=== PATIENT | male | born 1970 | race Caucasian/White ===

== ENCOUNTER 2020-06-29 00:49 | Emergency (ER) | payer OTHER, MEDICAID, SELFPAY ==
[2020-06-29 01:02] VITALS: BP 180/90; PULSE 81; RESP 16; TEMP 35.5; O2SAT 98; BMI 37.1
[2020-06-29 01:19] LABS: Glucose, Whole Blood 200 mg/dL (60-115)
[2020-06-29 03:28] LABS: MANUAL DIFF FLAG NO
[2020-06-29 03:29] LABS: Basophils Absolute Auto 0.1 X10*3/uL (0.0-0.2); Basophils Percent Auto 0.4 % (0-2); Eosinophils Absolute Auto 0.1 X10*3/uL (0.0-0.4); Eosinophils Percent Auto 1.1 % (0-4); Hematocrit 38.5 % (42-52); Imm Gran Abs Auto 0.03 X10*3/uL (0.00-0.03); Imm Gran Pct Auto 0.3 % (0.0-0.4); Lymphocytes Absolute Auto 2.2 X10*3/uL (1.2-4.9); Lymphocytes Percent Auto 18.3 % (20-40); Mean Corpuscular HGB Conc 33.8 g/dl (31.0-36.0); Mean Corpuscular Volume 97.7 fL (80-98); Monocytes Absolute Auto 0.6 X10*3/uL (0.1-1.2); Monocytes Percent Auto 5.1 % (2-11); Neutrophils Absolute Auto 8.9 X10*3/uL (2.0-8.3); Neutrophils Percent Auto 74.8 % (45-73); Platelet Count 247 X10*3/uL (160-400); Red Blood Count 3.94 X10*6/uL (4.60-5.80); Red Cell Distribution Width 12.6 % (11.0-16.0); White Blood Count 11.9 X10*3/uL (4.8-10.8)
[2020-06-29 04:00] VITALS: BP 168/84; PULSE 75; RESP 16; TEMP 36.1; O2SAT 99
[2020-06-29 04:00] LABS: Alanine Aminotransferase 41 U/L (0-40); Albumin Level 4.6 g/dL (3.5-5.0); Alkaline Phosphatase 57 U/L (39-117); Anion Gap 15 (12-20); Aspartate Amino Transferase 21 U/L (5-37); Bilirubin Total 0.4 mg/dL (0.0-1.0); Blood Urea Nitrogen 25 mg/dL (9-16); Carbon Dioxide 24 mmol/L (22-29); Chloride 103 mmol/L (96-108); Creatinine Clr Calc Pharmacy 90.7; Estimated Glomerular Filt Rate > 60; Glucose Random 227 mg/dL (60-115); Potassium 4.7 mmol/l (3.3-5.1); Sodium 137 mmol/L (135-145); Total Protein 7.1 g/dL (6.5-8.0)
--- NOTE | 2020-06-29 04:39 | ED_ITS ---
HPI - Dizziness General Chief Complaint: Dizziness Stated Complaint: Dizziness Time Seen by Provider: 06/29/20 04:19 Source: patient Mode of arrival: ambulatory Limitations: no limitations History of Present Illness HPI Narrative: Patient comes in complaining of severe dizziness. Patient states at 21:00 last night he has sudden onset of ringing in his right ear, then suddenly he became dizzy. Patient states the whole room is spinning. Patient is nauseous, no vomiting. Patient states every time he moves his head, the spinning gets worse. MD elicited complaint: dizziness Timing: sudden onset Severity: moderate Description: room spinning History of similar symptoms: No Exacerbating factors: movement/ambulation Relieving factors: remaining still Associated symptoms: nausea Related Data Previous Rx's Medication Instructions Recorded meclizine 25 mg PO TID PRN #20 tab 06/29/20 Allergies Allergy/AdvReac Type Severity Reaction Status Date / Time bee pollen [BEE STINGS] Allergy Severe ANAPHYLAXIS Unverified 06/02/20 15:31 tree nut [TREE NUT] Allergy Severe ANAPHYLAXIS Unverified 06/02/20 15:31 SEASONAL ALLERGIES Allergy Mild RUNNY NOSE Uncoded 06/02/20 15:31 Review of Systems Review of Systems: Constitutional : No Weight loss, No Fever, No Chills, No Night Sweats, No Fatigue, No Malaise ENT/Mouth : No Hearing loss, No Ear Pain, No Nasal Congestion, No Sinus Pain, No Hoarseness, No sore throat, No Rhinorrhea, No Swallowing Difficulty Eyes: No Eye Pain, No Swelling, No Redness, No Foreign Body, No Discharge, No Vision Changes Cardiovascular : No Chest Pain, No SOB, No Dyspnea on Exertion, No Orthopnea, No Edema, No Palpitations Respiratory : No Cough, No Sputum, No Wheezing, No Smoke Exposure, No Dyspnea Gastrointestinal : No Nausea, No Vomiting, No Diarrhea, No Constipation, No abdominal Pain, No Hematochezia, No Melena Genitourinary : no irregular bleeding, No Dysuria, No Urinary Frequency, No Hematuria, No Urinary Incontinence, No Urgency, No Flank Pain, No Urinary Flow Changes, No Hesitancy Musculoskeletal : No joint pain, No Myalgias, No Joint Swelling Skin : No Skin Lesions, No rash Neuro : No Weakness, No Numbness, No Paresthesias, No Loss of Consciousness, Dizziness with head movement, described as the room spinning. No Headache Psych : No Anxiety/Panic, No Depression, No SI/HI/AH/VH, No Social Issues, Heme/Lymph: No Bruising, No Bleeding,No Lymphadenopathy Endocrine : No Polyuria, No Polydipsia, No Temperature Intolerance [facility] Social History Social History Alcohol intake: never Smoking Status: Never smoker Smoked in Last 30 Days: No Use of substances other than those prescribed or required for medical reasons: No Advance Directives: No Advance Directives Information Provided: No Physical Exam Vital Signs: Vital Signs: Vital Signs Temp Pulse Resp BP Pulse Ox 06/29/20 06:00 97.8 F 69 16 102/55 L 98 06/29/20 04:00 97.0 F 75 16 168/84 H 99 06/29/20 01:02 96 F L 81 16 180/90 H 98 Body Mass Index 37.1 Appearance: Alert. Oriented X3. No acute distress. Eyes: Pupils equal, round and reactive to light. Horizontal nystagmus with head movement ENT: Pharynx normal. Neck: Normal inspection. Neck supple. No lymph nodes noted. No crepitus CVS: Normal heart rate and rhythm. Pulses normal. Normal S1 and S2 Respiratory: No respiratory distress. Breath sounds normal. No Wheezing. No rales Abdomen: Soft and nontender. No rigidity. No distention. good BS x4 Skin: Skin warm and dry. Normal skin color. Normal skin turgor. Extremities: No lower extremity edema. No lower extremity edema. No Lacerations. No Rash Neuro: Oriented X 3. No motor deficit. No sensory deficit. Moving all exterm ities. No slurred speech, NIH score of 0. Course Reevaluation(s) Reevaluation #1: patient was given 1 dose of meclizine, Benadryl, Valium, his symptoms improved but patient still Has a sensation the room is spinning when he tries to get up or moves his head. MDM - Dizziness Lab Data Result diagrams: 06/29/20 03:23 06/29/20 03:23 Labs: Lab Results 06/29/20 06/29/20 06/29/20 Range/Units 01:07 03:23 03:23 WBC 11.9 H (4.8-10.8) X10*3/uL RBC 3.94 L (4.60-5.80) X10*6/uL Hgb 13.0 L (14.0-18.0) g/dl Hct 38.5 L (42-52) % MCV 97.7 (80-98) fL MCH 33.0 (27.0-33.0) pg MCHC 33.8 (31.0-36.0) g/dl RDW 12.6 (11.0-16.0) % Plt Count 247 (160-400) X10*3/uL MPV 10.0 (9.4-12.4) fL Immature Gran % (Auto) 0.3 (0.0-0.4) % Neut % (Auto) 74.8 H (45-73) % Lymph % (Auto) 18.3 L (20-40) % Hitchcock % (Auto) 5.1 (2-11) % Eos % (Auto) 1.1 (0-4) % Baso % (Auto) 0.4 (0-2) % Lymph # (Auto) 2.2 (1.2-4.9) X10*3/uL Hitchcock # (Auto) 0.6 (0.1-1.2) X10*3/uL Eos # (Auto) 0.1 (0.0-0.4) X10*3/uL Baso # (Auto) 0.1 (0.0-0.2) X10*3/uL Abs Immat Gran (auto) 0.03 (0.00-0.03) X10*3/uL Absolute Neuts (auto) 8.9 H (2.0-8.3) X10*3/uL Absolute Nucleated RBC 0.000 (0.0-0.012) X10*3/uL Nucleated RBC % (auto) 0.0 (0.0-0.2) /100WBC Sodium 137 (135-145) mmol/L Potassium 4.7 (3.3-5.1) mmol/l Chloride 103 (96-108) mmol/L Carbon Dioxide 24 (22-29) mmol/L Anion Gap 15 (12-20) BUN 25 H (9-16) mg/dL Creatinine 1.09 (0.5-1.4) mg/dL Estim Creat Clear Calc 90.7 Estimated GFR > 60 POC Glucose 200 H (60-115) mg/dL Random Glucose 227 H (60-115) mg/dL Calcium 9.4 (8.4-10.2) mg/dL Total Bilirubin 0.4 (0.0-1.0) mg/dL AST 21 (5-37) U/L ALT 41 H (0-40) U/L Alkaline Phosphatase 57 (39-117) U/L Total Protein 7.1 (6.5-8.0) g/dL Albumin 4.6 (3.5-5.0) g/dL Discharge Plan Discharge Clinical Impression: Benign paroxysmal positional vertigo Qualifiers: Laterality: unspecified laterality Qualified Code(s): H81.10 - Benign paroxysmal vertigo, unspecified ear Patient Disposition: Home, Self-Care Instructions: Benign Paroxysmal Positional Vertigo (ED) Additional Instructions: please follow-up with your primary care physician, and please make an appointment to be seen at the outpatient [facility]. Please follow-up with your primary care physician tomorrow. If you have any worsening or new symptoms, please return to the emergency room or call 911 Prescriptions: New meclizine 25 mg tablet,chewable 25 mg PO TID PRN (Reason: dizziness) Qty: 20 RF: 0
[2020-06-29 05:03] LABS: Calcium 9.4 mg/dL (8.4-10.2)
[2020-06-29] MEDS: Meclizine HCl 25 MG TABLET 50 MG PO (05:10)
[2020-06-29] MEDS: diazePAM 5 MG TABLET PO (05:10)
[2020-06-29 06:00] VITALS: BP 102/55; PULSE 69; RESP 16; TEMP 36.6; O2SAT 98
== END 2020-06-29 09:08 | disposition home or self-care (01) ==
PROVIDERS: Emergency Provider Emergency Medicine; PCP Internal Medicine
DX: H81.10 Benign paroxysmal vertigo, unspecified ear (principal); Z79.899 Other long term (current) drug therapy
CPT/HCPCS: 36415; 80053; 82947; 85025; 96372; 96374; 99284; J1200

== ENCOUNTER 2020-08-14 23:32 | Emergency (ER) | payer OTHER, MEDICAID, SELFPAY ==
[2020-08-14 23:53] VITALS: BP 129/77; PULSE 110; RESP 17; TEMP 37.6; O2SAT 97; BMI 36.3
--- NOTE | 2020-08-14 23:59 | ED_ITS ---
HPI - Skin/Abscess/Foreign Bdy General Chief complaint: Skin/Abscess/Foreign Body Stated complaint: ABSCESS Time Seen by Provider: 08/14/20 23:59 Source: patient Mode of arrival: ambulatory Limitations: no limitations History of Present Illness HPI narrative: 50-year-old male with history of abscesses presents with skin infection and suspected abscess To the pubic mons just above the penis. He denies chest pain and pressure, palpitations, shortness breath, abdominal pain, abdominal distention, dysuria, hematuria, fevers and chills. Related Data Previous Rx's Medication Instructions Recorded meclizine 25 mg PO TID PRN #14 tab 06/29/20 meclizine 25 mg PO TID PRN #20 tab 06/29/20 amoxicillin-pot clavulanate 1 tab PO Q12H 10 Days #20 tab 08/15/20 [Augmentin] doxycycline monohydrate 100 mg PO BID 14 Days #28 cap 08/15/20 oxycodone-acetaminophen [Percocet] 1 tab PO Q6H PRN #7 tab 08/15/20 Allergies Allergy/AdvReac Type Severity Reaction Status Date / Time bee pollen [BEE STINGS] Allergy Severe ANAPHYLAXIS Verified 08/15/20 00:42 tree nut [TREE NUT] Allergy Severe ANAPHYLAXIS Verified 08/15/20 00:42 SEASONAL ALLERGIES Allergy Mild RUNNY NOSE Uncoded 06/02/20 15:31 Review of Systems Review of Systems: Constitutional: No Fever, No Chills ENT/Mouth: No sore throat, No Rhinorrhea Eyes: No Eye Pain, No Swelling, No Redness Cardiovascular: No Chest Pain, No SOB Respiratory: No Cough, No Sputum Gastrointestinal: No Nausea, No Vomiting, No Diarrhea, No abdominal Pain Genitourinary: No Dysuria, No Hematuria Musculoskeletal: No joint pain, No Myalgias, No Joint Swelling Skin: No Skin Lesions, positive Erythema and abscess to the pubic mons. Neuro: No Weakness, No Numbness, No Loss of Consciousness, No Dizziness, No Headache Psych: No Anxiety, No Depression, No SI/HI/AH/VH Heme/Lymph: No Bruising, No Bleeding,No Lymphadenopathy Endocrine: No Polyuria, No Polydipsia Yes all other systems are reviewed and are negative [facility] Past Medical History Attestation statement: The following information was validated with the patient. Social History Social History Alcohol intake: never Smoking Status: Never smoker Advance Directives: No Physical Exam Vital Signs: Vital Signs: Last Vital Signs Temp 98.9 F 08/15/20 00:55 Pulse 111 H 08/15/20 00:55 Resp 20 08/15/20 00:55 BP 126/81 08/15/20 00:55 Pulse Ox 97 08/15/20 00:55 Body Mass Index 36.3 Appearance: Alert. Oriented X3. No acute distress. Eyes: Pupils equal, round and reactive to light. ENT: Pharynx normal. Neck: Normal inspection. Neck supple. CVS: Normal heart rate and rhythm. Pulses normal. Respiratory: No respiratory distress. Breath sounds normal. Abdomen: Soft and nontender. 3 cm x 2 cm area of induration and erythema right above the penis Skin: Skin warm and dry. all other areas have Normal skin color and skin turgor. Extremities: No lower extremity edema. Neuro: No motor deficit. No sensory deficit. Course Course Course Narrative: 50-year-old male with history of prior abscesses to the groin and axilla presents with a abscess to the pubic mons right above his penis. States that there was a lump in the inguinal crease 2 days ago and has progressively gotten worse. He does not report any fevers or chills, plan of care is for I and D and packing of this abscess. Detailed description of procedure given to the patient, he verbalized understanding of and agrees to the plan. Tdap has not been updated, we will update, we will treat with doxycycline and Augmentin. 1.5 cm incision with 11 blade, packed with approximately 1 in of iodoform packing. Prepped and draped in sterile fashion, anesthetized with 6 mL of 2% lidocaine. Patient tolerated procedure well. Detailed description of wound care and to return in 3 days for wound check. He also does understand that if the wound gets worse or he has symptoms indicating sepsis that he should return sooner. Patient verbalized understanding of and agrees to plan of care discharge home. MDM - Skin/Abscess/Foreign Bdy Differential Diagnosis Differential diagnosis: Likely abscess of skin or subcutaneous tissue Medical Records Attestation: I reviewed the patient's medical records. Lab Data Attestation: I reviewed the patient's lab results. Discharge Plan Discharge Clinical Impression: Abscess of skin or subcutaneous tissue Qualifiers: Site of cutaneous abscess: other site Qualified Code(s): L02.818 - Cutaneous abscess of other sites Patient Disposition: Home, Self-Care Instructions: Abscess (ED), Abscess Follow-up (ED), Abscess Incision and Drainage (DC) Additional Instructions: you were evaluated for an abscess to the suprapubic area. Please return in 3 days for wound check. Take doxycycline and Augmentin as directed. These medications are antibiotics. Do not soak in water or swim until the wound heals. You may shower. We updated Your Tdap vaccine today. we prescribed oxycodone for pain management. This medication is a narcotic and has high risk for addiction and abuse. Do not drive or operate machinery while taking this medication. Please return sooner if you have worsening pain or swelling at the site, fevers, chills, or any other concerning symptoms. Prescriptions: New doxycycline monohydrate 100 mg capsule 100 mg PO BID 14 Days Qty: 28 RF: 0 amoxicillin-pot clavulanate [Augmentin] 875-125 mg tablet 1 tab PO Q12H 10 Days Qty: 20 RF: 0 oxycodone-acetaminophen [Percocet] 5-325 mg tablet 1 tab PO Q6H PRN (Reason: pain) Qty: 7 RF: 0 No Action meclizine 25 mg tablet,chewable 25 mg PO TID PRN (Reason: dizziness) Qty: 20 RF: 0 meclizine 25 mg tablet 25 mg PO TID PRN (Reason: dizziness) Qty: 14 RF: 0 Interventions: ED Discharge Assessment Last Done: 08/15/20 00:55 Discharge Date/Time: 08/15/20 01:01
[2020-08-15] MEDS: Lidocaine HCl 2 % MPF 5 ML VIAL 10 ML SUBCUT (00:20)
[2020-08-15] MEDS: Amoxicillin/Potassium Clav 875 MG TABLET PO (00:21)
[2020-08-15 00:55] VITALS: BP 126/81; PULSE 111; RESP 20; TEMP 37.2; O2SAT 97
== END 2020-08-15 01:01 | disposition home or self-care (01) ==
PROVIDERS: Emergency Provider Emergency Medicine; PCP Internal Medicine
DX: L02.818 Cutaneous abscess of other sites (principal); S30.811A Abrasion of abdominal wall, initial encounter; X58.XXXA Exposure to other specified factors, initial encounter; Y93.9 Activity, unspecified; Y92.9 Unspecified place or not applicable; Y99.9 Unspecified external cause status; Z23 Encounter for immunization
CPT/HCPCS: 10060; 90471; 90715; 99283; 99284

== ENCOUNTER 2020-08-18 02:04 | Emergency (ER) | payer OTHER, MEDICAID, SELFPAY ==
[2020-08-18 02:49] VITALS: BP 142/79; PULSE 93; RESP 15; TEMP 37.1; O2SAT 97; BMI 36.3
--- NOTE | 2020-08-18 03:03 | ED.WOUNDLAC ---
HPI - Wound/Laceration General Chief Complaint: Wound/Laceration Stated Complaint: wound check Time Seen by Provider: 08/18/20 03:03 Source: patient Mode of arrival: ambulatory Limitations: no limitations History of Present Illness HPI narrative: This is a 50-year-old male who presents for wound check after having an I&D on 08/14. Patient states that the wick came out but denies any fevers, chills. Related Data Previous Rx's Medication Instructions Recorded meclizine 25 mg PO TID PRN #14 tab 06/29/20 meclizine 25 mg PO TID PRN #20 tab 06/29/20 amoxicillin-pot clavulanate 1 tab PO Q12H 10 Days #20 tab 08/15/20 [Augmentin] doxycycline monohydrate 100 mg PO BID 14 Days #28 cap 08/15/20 oxycodone-acetaminophen [Percocet] 1 tab PO Q6H PRN #7 tab 08/15/20 Allergies Allergy/AdvReac Type Severity Reaction Status Date / Time bee pollen [BEE STINGS] Allergy Severe ANAPHYLAXIS Verified 08/15/20 00:42 tree nut [TREE NUT] Allergy Severe ANAPHYLAXIS Verified 08/15/20 00:42 SEASONAL ALLERGIES Allergy Mild RUNNY NOSE Uncoded 06/02/20 15:31 Review of Systems Review of Systems: Pertinent positives and negatives as stated in HPI 10 point review systems otherwise negative. PMFSH Past Medical History Source: nursing notes reviewed Social History Social History Alcohol intake: never Smoking Status: Light tobacco smoker Use of substances other than those prescribed or required for medical reasons: No Advance Directives: No Advance Directives Information Provided: No Physical Exam Vital Signs: Vital Signs: Last Vital Signs Temp 98.7 F 08/18/20 02:49 Pulse 93 08/18/20 02:49 Resp 15 08/18/20 02:49 BP 142/79 H 08/18/20 02:49 Pulse Ox 97 08/18/20 02:49 Body Mass Index 36.3 VITAL SIGNS: Reviewed. GENERAL: Well developed, well nourished, in no acute distress. HEAD: Normocephalic/atraumatic, EYES: PERRLA, EOMI intact without pain, no nystagmus/pallor/icterus noted EARS: Ext canals without abnormality, TMs non-bulging and non-erythematous NOSE: Nares patent bilateral OROPHARYNX: no oral lesions noted, posterior pharynx clear and non-erythematous without noted tonsillar enlargement/erythema/exudates NECK: Supple, no adenopathy LUNGS: Normal breath sounds. No adventitious sounds or accessory muscle use. SpO2<> CARDIOVASCULAR: Regular rate and rhythm without noted murmurs, no JVD or lower extremity edema. ABDOMEN: Soft, non-tender, non-distended with bowel sounds. No rigidity. No guarding. No palpable masses or hernias noted : Evaluation site yields some residual induration however there is no purulence noted on probe with sterile Q-tip there is no concerning pus noted and tissue looks healthy, there is no crepitus MUSCULOSKELETAL: No tenderness, deformities, or effusions noted on gross inspection. EXTREMITIES: No cyanosis, clubbing or edema. SKIN: Inspection of the skin reveals no rashes, ulcerations, jaundice, pallor, or petechiae. NEUROLOGIC: Alert and oriented x 4. Strength and sensation to light touch were grossly intact x 4. Course Course Course Narrative: this is a 50-year-old male with history and clinical presentation consistent with well-healing site of incision and drainage and patient was encouraged to continue the antibiotics until completion and to also utilize warm moist compresses to expedite the process. There is no concern for necrotizing fasciitis. Patient was discharged in stable condition. Discharge Plan Discharge Clinical Impression: Visit for wound check Patient Disposition: Home, Self-Care Instructions: Wound Healing and Your Diet (ED) Additional Instructions: 1. Complete the entire course of your antibiotics. 2. continue to apply warm moist compresses to the area 3 times a day when possible. 3. Please follow-up with your primary care provider for continued re-evaluation and management. Prescriptions: No Action meclizine 25 mg tablet,chewable 25 mg PO TID PRN (Reason: dizziness) Qty: 20 RF: 0 meclizine 25 mg tablet 25 mg PO TID PRN (Reason: dizziness) Qty: 14 RF: 0 doxycycline monohydrate 100 mg capsule 100 mg PO BID 14 Days Qty: 28 RF: 0 amoxicillin-pot clavulanate [Augmentin] 875-125 mg tablet 1 tab PO Q12H 10 Days Qty: 20 RF: 0 oxycodone-acetaminophen [Percocet] 5-325 mg tablet 1 tab PO Q6H PRN (Reason: pain) Qty: 7 RF: 0 Referrals: Devon Galvez MD [Primary Care Provider] - 2 days ( Evaluation management incision and drainage)
--- NOTE | 2020-08-18 03:03 | PC.NURSE ---
Patient seen by MD and evaluated. Plan for discharge as wound is open and not draining pus and patient has 1 week worth of abx therapy. Plan for patient to f/u with primary MD
== END 2020-08-18 03:34 | disposition home or self-care (01) ==
PROVIDERS: Emergency Provider Student in an Organized Health Care Education/Training Program; PCP Internal Medicine
DX: Z48.00 Encounter for change or removal of nonsurgical wound dressing (principal); F17.210 Nicotine dependence, cigarettes, uncomplicated
CPT/HCPCS: 99283

== ENCOUNTER → 2025-02-02 08:21 | Outpatient (RCR) | payer OTHER, MEDICAID, SELFPAY ==
[2020-07-11 11:18] VITALS: BP 136/86; PULSE 89; O2SAT 98
== END | disposition home or self-care (01) ==
LOC: HO.PTCHIC 07-11 10:47
PROVIDERS: PCP Internal Medicine; Visit Provider Internal Medicine
DX: R42 Dizziness and giddiness (principal)
CPT/HCPCS: 95992; 97110; 97112; 97162; 97530